=== PATIENT | male | born 1955 | race Caucasian/White ===

== ENCOUNTER → 2017-03-17 14:08 | Outpatient (CLI) | payer OTHER | END | disposition home or self-care (01) | LOC: D.RAD 14:08 | DX: S56.911A Strain of unspecified muscles, fascia and tendons at forearm level, right arm, initial encounter (principal); X58.XXXA Exposure to other specified factors, initial encounter; Y93.89 Activity, other specified; Y92.89 Other specified places as the place of occurrence of the external cause ==

== ENCOUNTER 2017-08-13 06:29 | Day surgery (SDC) | payer OTHER ==
[2017-08-12 14:23] LABS: HEMATOCRIT 46.6 % (42.0-54.0); HEMOGLOBIN 15.6 g/dL (13.5-17.5); MCH 31.3 pg (26.0-34.0); MCHC 33.5 g/dL (31.0-37.0); MCV 93.4 fL (80.0-100.0); RBC 4.99 10x6/uL (4.20-6.10)
[~2017-08-13] VITALS: Ht 190.5 cm; Wt 127.0 kg
--- NOTE | ~2017-08-13 | OP ---
PATIENT NAME: ALEIDA DRAKE MEDICAL RECORD: [id number] :53 [facility]ATION[facility] ADMISSION DATE: SURGEON: FOX ONTIVEROS DO DATE OF OPERATION: 08/13/2017 PROCEDURE PERFORMED: Left lateral epicondylectomy with extensor tendon debridement. PREOPERATIVE DIAGNOSIS: Left tennis elbow or lateral epicondylitis. POSTOPERATIVE DIAGNOSIS: Left tennis elbow or lateral epicondylitis. INDICATIONS: Mr. Drake is a 61-year-old male who has had left elbow pain for quite some time. He has tried bracing and injections, they have not helped. It has gotten to the point where it is affecting his activities of daily living and he wants something done surgically. We informed him of the risks and benefits of procedure including this sometimes may not have complete resolution of his symptoms, but he was wanting to try due to the fact he had been dealing with it quite some time, he wanted something done. SURGEON: Fox Ontiveros DO Tourniquet was up for 29 minutes. COMPLICATIONS: None. BLOOD LOSS: Minimal. DESCRIPTION OF PROCEDURE: The patient was taken to the operative suite, laid in supine position, given general anesthetic. A gram of Ancef preoperatively. Timeout was performed. Everyone was in agreeance with the correct side, site and patient. Left upper extremity was prepped and draped in sterile fashion. Once this was done, the left upper extremity was exsanguinated with an Esmarch and tourniquet was inflated to 250 mmHg. An incision was then made over the lateral condyle and just distal to it, and careful dissection was made down to the extensor carpi radialis longus and the extensor communis tendon. This interval was entered and the extensor carpi radialis brevis was seen below them and was seen to be quite diseased and frayed. This was scraped out at that time and all the diseased tendon was removed. Then, the lateral epicondyle was scraped as well. A cortical bone was removed and the interval was then closed with a 0 Vicryl in fjadmn-ci-rwwfb fashion and a watertight seal. No rent in the capsule was noted at that time. Attempt at closing the tourniquet was let down. Any bleeding was then coagulated and the skin was closed with 3-0 Vicryl inverted interrupted fashion and 4-0 Monocryl was ran under the skin. Steri-Strips were placed on the skin. Adaptic, 4 x 4s, Webril and Coban was lightly wrapped around the elbow and the patient was placed in a cock-up wrist splint. He was awakened and taken to recovery in stable condition. TRANSINT:[id number] Voice Confirmation ID: [id number] DOCUMENT ID: [id number] OPERATIVE REPORT [id number] ALEIDA DRAKE MICHAEL D, DO at 1502 CC: [id number] DICTATION DATE: 08/13/17828 ELECTRON BEAM PHOTO MASK MAKER: 08/13/17 1237 [facility] 08/13/17 [facility] [address] [place] [address]
[2017-08-13 06:17] VITALS: BP 139/88; Ht 190.5 cm; Wt 127.0 kg
[~2017-08-13 06:29] MED LIST: ACETAMINOPHEN325 MG PO; BAYER CHEWABLE81 MG PO; BUPROPION HCL200 M1 PO; KLONOPIN0.5 MG PO; PRISTIQ100 MG PO
[2017-08-13] MEDS ORDERED: DURICEF500 MG PO (08:21)
[2017-08-13] MEDS ORDERED: OXYCODONE HCL10 MG PO (08:21)
== END 2017-08-13 10:00 | disposition home or self-care (01) ==
LOC: D.OPS 06:29 → D.PAN 07:30 → D.OPS 09:15 → D.PAN 09:15 → D.OPS 10:00
PROVIDERS: Anesthesiology
DX: M77.12 Lateral epicondylitis, left elbow (principal); Z01.812 Encounter for preprocedural laboratory examination

== ENCOUNTER 2017-11-08 11:21 | Day surgery (SDC) | payer OTHER ==
[~2017-11-08] VITALS: Ht 188 cm; Wt 129.3 kg
--- NOTE | ~2017-11-08 | OP ---
PATIENT NAME: ALEIDA DRAKE MEDICAL RECORD: [id number] :53 LOCATION:[facility] ADMISSION DATE: SURGEON: ZORAIDA LAMBERT MD DATE OF OPERATION: 11/08/2017 PREOPERATIVE DIAGNOSIS: Severe medial epicondylitis of the left elbow. POSTOPERATIVE DIAGNOSIS: Severe medial epicondylitis of the left elbow. PROCEDURE: Lateral epicondylectomy with bone debridement and debridement of tendinosis of the medial elbow, left. SURGEON: Zoraida Lambert MD ANESTHESIA: General. INTRAOPERATIVE COMPLICATIONS: None. SUMMARY OF PATHOLOGIC FINDINGS: The patient had had some tearing of the flexure mass off the medial epicondyle consistent with preoperative diagnosis and long-term of prolonged response to corticosteroids. OPERATIVE SUMMARY IN DETAIL: After obtaining the appropriate preoperative orthopedic surgery consent as well as anesthetic consultation, evaluation and clearance, the patient was brought to the operating room and placed on the operating table in a supine position. After general laryngeal mask airway was administered, tourniquet was placed about the proximal aspect of the left upper extremity. Left upper extremity was then prepped and draped in routine sterile fashion. The arm was elevated and exsanguinated, tourniquet inflated to 250 mmHg. An incision was made over the medial epicondyle, taken down to the level of the medial epicondyle where the medial epicondyle was exposed and tendinotic and torn appearing fibers were excised. A small TPSL was then utilized to unroof the medial epicondyle for good bleeding bone bed. The anterior aspect of this area was somewhat sclerotic. This was then irrigated and a 3-0 SutureTak from [employer] was placed, the tails of which were then used to reapproximate the healthy tissue back to the bleeding bone bed. This was also oversewn with #1 Vicryl. Final skin closure was achieved with a 2-0 Vicryl and 3-0 Prolene in a running fashion. Sterile dressings were applied. The patient was awakened, taken to the recovery room in stable condition. All final needle and sponge counts were correct. TRANSINT:[id number] Voice Confirmation ID: [id number] DOCUMENT ID: [id number] ZORAIDA LAMBERT MD at 1842 CC: [id number] DICTATION DATE: 11/08/17 1706 CERTIFIED HAND THERAPIST: 11/09/17 0137 [facility] SDC 11/08/17 [facility] [address] [place] [address]
[~2017-11-08 11:21] MED LIST changes: +DURICEF500 MG PO; +OXYCODONE HCL10 MG PO
[2017-11-08 12:08] LABS: BASOPHILS 0.5 % (0-2); EOSINOPHILS 1.9 % (0-7); HEMATOCRIT 46.3 % (42.0-54.0); HEMOGLOBIN 15.8 g/dL (13.5-17.5); IMMATURE GRANULOCYTES 0.3 % (0-5); LYMPHOCYTES 35.6 % (15-50); MCH 30.9 pg (26.0-34.0); MCHC 34.1 g/dL (31.0-37.0); MCV 90.6 fL (80.0-100.0); MEAN PLATELET VOLUME 10.4 fL (7.4-10.4); MONOCYTES 8.3 % (2-11); NEUTROPHILS 53.4 % (40-80); PLATELET COUNT 230 10x3/uL (130-400); RBC 5.11 10x6/uL (4.20-6.10); RDW 13.4 % (11.5-14.5); WBC 6.3 10x3/uL (4.8-10.8)
[2017-11-08] MEDS ORDERED: TOPROL XL50 MG PO (12:16)
[2017-11-08 12:19] LABS: CALC OSMOLALITY 280 mosm/kg (275-300); CARBON DIOXIDE 24.2 mmol/L (21.0-32.0); CHLORIDE - SERUM 105 mmol/L (98-107); CREATININE - SERUM 0.9 mg/dL (0.6-1.3); GLUCOSE 111 mg/dL (74-106); POTASSIUM - SERUM 4.1 mmol/L (3.5-5.1); SODIUM 139 mmol/L (136-145); UREA NITROGEN 17 mg/dL (7-18); eGFR NON AFRICAN AMERICAN > 90 mL/min (90-120)
[2017-11-08 12:35] VITALS: BP 155/93; Ht 188 cm; Wt 129.3 kg
[2017-11-08] MEDS ORDERED: HYDROCODONE-APA1 TAB PO (17:06)
[2017-12-09] MEDS ORDERED: PRINIVIL20 MG PO (10:53)
== END 2017-11-08 19:04 | disposition home or self-care (01) ==
LOC: D.OPS 11:21 → D.PAN 13:45 → D.OPS 13:45
PROVIDERS: Anesthesiology
DX: M77.02 Medial epicondylitis, left elbow (principal); I10 Essential (primary) hypertension; G47.30 Sleep apnea, unspecified; E66.01 Morbid (severe) obesity due to excess calories; Z01.812 Encounter for preprocedural laboratory examination

== ENCOUNTER → 2017-11-24 14:55 | Outpatient (CLI) | payer OTHER ==
[2017-11-08 12:35] VITALS: BMI 36.6
[~2017-11-24 14:55] MED LIST changes: +HYDROCODONE-APA1 TAB PO; +PERCOCET 10/3251 TA1 PO; +PRINIVIL20 MG PO; +TOPROL XL50 MG PO
== END | disposition home or self-care (01) ==
LOC: D.MRI 14:55
DX: M25.512 Pain in left shoulder (principal)

== ENCOUNTER 2017-12-10 06:42 | Day surgery (SDC) | payer OTHER ==
[2017-12-09 11:58] LABS: HEMATOCRIT 44.4 % (42.0-54.0); HEMOGLOBIN 15.1 g/dL (13.5-17.5); MCH 31.4 pg (26.0-34.0); MCV 92.3 fL (80.0-100.0); MEAN PLATELET VOLUME 10.4 fL (7.4-10.4); RBC 4.81 10x6/uL (4.20-6.10); RDW 13.4 % (11.5-14.5); WBC 6.1 10x3/uL (4.8-10.8)
[~2017-12-10] VITALS: Ht 188 cm; Wt 129.3 kg
--- NOTE | ~2017-12-10 | OP ---
PATIENT NAME: ALEIDA DRAKE MEDICAL RECORD: [id number] :53 [facility]ATION:[facility] ADMISSION DATE: SURGEON: FAUSTO HOLT, ZORAIDA JEROME DATE OF OPERATION: 12/10/2017 PREOPERATIVE DIAGNOSES: 1. Impingement syndrome of the left shoulder. 2. Rotator cuff tear of the left shoulder. POSTOPERATIVE DIAGNOSES: 1. Impingement syndrome of the left shoulder. 2. Rotator cuff tear of the left shoulder. PROCEDURES: 1. Arthroscopic rotator cuff repair of the left shoulder. 2. Arthroscopic distal clavicle excision of the left shoulder. 3. Arthroscopic subacromial decompression with acromioplasty and bursectomy. SURGEON: Zoraida Lambert MD RESTORATIVE COORDINATOR SURGEON: Yo Marques MD ANESTHESIA: General. INTRAOPERATIVE COMPLICATIONS: None. SUMMARY OF PATHOLOGIC FINDINGS: As seen on the MRI, the patient had a full thickness rotator cuff tear of the supraspinatus tendon. The patient also had a type 3 acromion with downward sloping acromion and excoriation of the coracoacromial ligament. 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 OPERATIVE SUMMARY IN DETAIL: After obtaining the appropriate preoperative orthopedic surgery consent as well as anesthetic consultation, evaluation and clearance, the patient was brought to the operating room and placed on operating table in supine position. After general laryngeal mask airway was administered, the patient was placed in right lateral decubitus position. All pressure points were padded to include down leg peroneal pad as well as axillary roll. The patient was held firmly to the operating table using the vacuum pack suction system. Left upper extremity and shoulder were then prepped and draped in routine sterile fashion. The arm was held at 30 degrees of forward flexion, 30 degrees of abduction with 10 pounds of traction laterally. Arthroscopy was established in the glenohumeral joint where posterior portal and anterior portal were established in the anterior safe interval. Diagnostic arthroscopy showed mild labral tearing; however, there was no substantial biceps tendinitis. The rotator cuff tear was noted. At this point, transarthroscopic rotator cuff portal was created for debridement of the undersurface tearing of the rotator cuff and decortication of the supraspinatus tendinous footprint. Next, arthroscopy was established in the glenohumeral joint. While in the glenohumeral joint, a surface tissue ablation system was utilized to denude the undersurface of the acromion of all soft tissue elements. A 5.0 barrel bur was used for acromioplasty at the level of acromioclavicular joint. At this point, separate arthroscopic anterior portal was utilized for direct visualization of the AC joint while Dr. Marques held the camera as well as the inflow portal. OPERATIVE REPORT [id number] ALEIDA DRAKE The distal clavicle was excised for 1 cm under direct arthroscopic visualization. Having completed this, attention was turned to the rotator cuff tear itself. Again, mobilization of the rotator tear was accomplished. The supraspinatus tendinous footprint was further decorticated and again with the assistance of Dr. Marques holding the camera and inflow portal, a Scorpion suture passer from [employer] was used to pass #2 FiberTape in an inverted mattress style fashion. This was then anchored laterally with a self-punching 5.[address]iveLock [address] [employer] which Dr. Marques put in. Having completed this, the labral tape was cut, arthroscopic portals were closed, and sterile dressings were applied. The patient was awakened and taken to the recovery room in stable condition. All final needle and sponge counts were correct. TRANSINT:[id number] Voice Confirmation ID: [id number] DOCUMENT ID: [id number] FAUSTO HOLT, ZORAIDA JEROME at 0942 CC: [id number] DICTATION DATE: 12/10/17 1139 MONOTYPE OPERATOR: 12/10/17 1242 [facility] 12/10/[address] [address]
[~2017-12-10 06:42] MED LIST changes: -PERCOCET 10/3251 TA1 PO
[2017-12-10 08:30] VITALS: Ht 188 cm; Wt 129.3 kg
[2017-12-10] MEDS ORDERED: PERCOCET 10/3251 TA1 PO (11:34)
== END 2017-12-10 14:40 | disposition home or self-care (01) ==
LOC: D.OPS 06:42 → D.PAN 08:30 → D.OPS 10:00
PROVIDERS: Anesthesiology
DX: M75.42 Impingement syndrome of left shoulder (principal); M75.122 Complete rotator cuff tear or rupture of left shoulder, not specified as traumatic; M94.212 Chondromalacia, left shoulder; M25.712 Osteophyte, left shoulder; Z01.812 Encounter for preprocedural laboratory examination

== ENCOUNTER → 2018-01-12 07:17 | Outpatient (CLI) | payer OTHER ==
[2017-12-10 08:30] VITALS: BMI 36.6
[~2018-01-12 07:17] MED LIST changes: +PERCOCET 10/3251 TA1 PO
== END | disposition home or self-care (01) ==
LOC: D.MRI 07:17
DX: M75.102 Unspecified rotator cuff tear or rupture of left shoulder, not specified as traumatic (principal)

== ENCOUNTER 2018-01-27 10:10 | Day surgery (SDC) | payer OTHER ==
[2018-01-26 16:15] LABS: HEMATOCRIT 44.6 % (42.0-54.0); HEMOGLOBIN 15.3 g/dL (13.5-17.5); MCH 31.2 pg (26.0-34.0); MCHC 34.3 g/dL (31.0-37.0); MCV 90.8 fL (80.0-100.0); MEAN PLATELET VOLUME 10.2 fL (7.4-10.4); RBC 4.91 10x6/uL (4.20-6.10); RDW 13.2 % (11.5-14.5); WBC 8.5 10x3/uL (4.8-10.8)
[~2018-01-27] VITALS: Ht 190.5 cm; Wt 131.5 kg
--- NOTE | ~2018-01-27 | OP ---
PATIENT NAME: ALEIDA DRAKE MEDICAL RECORD: [id number] :53 LOCATION:[facility] ADMISSION DATE: SURGEON: ZORAIDA LAMBERT MD DATE OF OPERATION: 01/27/2018 PREOPERATIVE DIAGNOSIS: Recurrent rotator cuff tear of the left shoulder. POSTOPERATIVE DIAGNOSIS: Recurrent rotator cuff tear of the left shoulder. PROCEDURE: Open rotator cuff repair of the left shoulder. SURGEON: Zoraida Lambert MD ANESTHESIA: General. INTRAOPERATIVE COMPLICATIONS: None. SUMMARY OF PATHOLOGIC FINDINGS: The patient's recurrent tear of the rotator cuff tear this time was much more anterior to the area of previous rotator cuff tear. OPERATIVE SUMMARY IN DETAIL: After obtaining the appropriate preoperative orthopedic surgery consent as well as anesthetic consultation, evaluation, and clearance, the patient was brought to the operating room and placed on the operating table in supine position. After general laryngeal mask airway was administered, the patient was placed in beach chair position. All pressure points were well padded to include down leg peroneal pad as axillary roll. The patient was held firmly to the operating table using the vacuum pack suction system. The patient's left upper extremity and shoulder were then prepped and draped in routine sterile fashion. The arm was held in Trimano arm holding device. The patient's left upper extremity was then prepped and draped in routine sterile fashion. Anterolateral incision was made from the acromioclavicular joint across the acromion. Anterior cuff was left for reapproximation of the deep deltoid fiber. Rotator cuff tear was immediately identified. Nonviable-appearing rotator cuff tissue was excised and the tuberosity was decorticated for reapproximation. Proximal row for the [employer] SpeedBridge was placed on both the anterior and posterior aspect of the tear. The single to 2 arm suture tape was passed. These were then cut crisscrossed and anchored anteriorly and posteriorly using the lateral row 4.75 SwiveLocks. Having completed this, the wound was copiously irrigated. The deep deltoid was reapproximated back to the acromion in a rynsz-zxkn-cdvo imbricated style suture for good reapproximation of the deltoid back to the acromion. The deltoid fascia was then closed further with #2 Ethibond. This was followed by #1 Vicryl, 2-0 Vicryl and skin frank. Sterile dressings were applied. The patient was awakened, taken to recovery in stable condition. All final needle and sponge counts were correct. TRANSINT:[id number] Voice Confirmation ID: [id number] DOCUMENT ID: [id number] OPERATIVE REPORT [id number] ALEIDA DRAKE MD, ZORAIDA JEROME at 1150 CC: [id number] DICTATION DATE: 01/27/18 1407 [facility] ARCHITECT: 01/27/18 1428 [facility] 01/27/18 [place] [id number] [place] [id number]
[2018-01-27 11:10] VITALS: Ht 190.5 cm; Wt 131.5 kg
[2018-01-27] MEDS ORDERED: PERCOCET 10/3251 TA1 PO (14:01)
== END 2018-01-27 18:00 | disposition home or self-care (01) ==
LOC: D.OPS 10:10 → D.PAN 12:15 → D.OPS 12:15
PROVIDERS: Anesthesiology
DX: M75.102 Unspecified rotator cuff tear or rupture of left shoulder, not specified as traumatic (principal); Z01.812 Encounter for preprocedural laboratory examination

== ENCOUNTER → 2018-12-01 12:26 | Outpatient (CLI) | payer OTHER ==
[2018-01-27 11:10] VITALS: BMI 36.3
== END | disposition home or self-care (01) ==
LOC: D.MRI 12:26
PROVIDERS: ATTEND Orthopaedic Surgery
DX: S83.232A Complex tear of medial meniscus, current injury, left knee, initial encounter (principal); X58.XXXA Exposure to other specified factors, initial encounter

== ENCOUNTER 2018-12-20 08:00 | Outpatient (CLI) | payer OTHER ==
[2018-01-27 11:10] VITALS: BMI 36.3
[2018-12-20] MEDS ORDERED: ACETAMINOPHEN500 M1 PO (10:42)
[2018-12-20 11:30] LABS: HEMATOCRIT 44.4 % (42.0-54.0); HEMOGLOBIN 14.9 g/dL (13.5-17.5); MCH 30.8 pg (26.0-34.0); MCHC 33.6 g/dL (31.0-37.0); MCV 91.9 fL (80.0-100.0); MEAN PLATELET VOLUME 9.8 fL (7.4-10.4); RBC 4.83 10x6/uL (4.20-6.10); RDW 13.5 % (11.5-14.5); WBC 7.6 10x3/uL (4.8-10.8)
== END 2018-12-20 08:01 | disposition home or self-care (01) ==
LOC: D.OPS 08:00 → D.PAN 12-22 17:15 → D.OPS 12-22 17:15 → EDSTATUS 12-22 17:15
PROVIDERS: Anesthesiology; ATTEND Orthopaedic Surgery
DX: S83.232A Complex tear of medial meniscus, current injury, left knee, initial encounter (principal); M65.351 Trigger finger, right little finger

== ENCOUNTER → 2019-01-05 07:45 | Outpatient (CLI) | payer OTHER ==
[2018-01-27 11:10] VITALS: BMI 36.3
[~2019-01-05 07:45] MED LIST changes: +ACETAMINOPHEN500 M1 PO; +BETAPACE 80 MG80 MG PO; +BETAPACE240 MG PO; +LANOXIN125 MCG PO; +PRISTIQ50 MG PO; +XARELTO20 MG PO
--- NOTE | 2019-01-11 10:00 | ST ---
PATIENT:ALEIDA DRAKE MEDICAL RECORD: [id number] SEX: M LOCATION:[facility] ORDER #: ADMISSION DATE: 01/05/19 AGE OF PATIENT: 63 REFERRING PHYSICIAN: INTERPRETING PHYSICIAN: LUIS LEIGH MD DATE OF SERVICE: 01/05/2019 Nuclear Stress Test INDICATIONS: Angina, shortness of breath, hypertension, abnormal ECG. PROCEDURE IN DETAIL: He was exercised on standard Lexiscan protocol with 33 mCi of sestamibi injected at peak stress and 11 mCi used previously for rest images. FINDINGS: Gated SPECT reveals preserved ejection fraction at 59% with good wall motioning and thickening and brightening throughout all segments. SPECT IMAGING: Cardiolite used as a myocardial perfusion agent. There are reversible changes inferiorly, inferolaterally, and septally, this includes the basal, mid apical, and inferior segments, basal septal, mid septal, apical septal, as well as lateral inferior segments. The degree of reversibility is mild to moderate. The amount of myocardium involved is moderate to large. OVERALL IMPRESSION: 1. This is an abnormal nuclear stress test with reversible changes inferiorly, septally, and inferolaterally. 2. Gated SPECT reveals preserved ejection fraction of 59%. This is an intermediate to high risk abnormal nuclear stress test due to the amount of myocardium involved in the reversible ischemia, would proceed with coronary angiography as a follow-up study. TRANSINT:[id number] Voice Confirmation ID: [id number] DOCUMENT ID: [id number] LUIS LEIGH MD at 1000 CC: KALIA ABERNATHY DO [id number] DICTATION DATE: 01/09/19 0959 TYPING POOL SUPERVISOR: 01/10/19 0352 [facility] CLI 01/05/19 [place] [id number] [place] [id number]
--- NOTE | 2019-01-11 10:00 | EC ---
PATIENT:ALEIDA DRAKE DATE OF SERVICE: 01/05/19 SEX: M MEDICAL RECORD: [id number] DATE OF : 53 [facility]ATION:[facility] AGE OF PATIENT: 63 ADMISSION DATE: 01/05/19 REFERRING PHYSICIAN: INTERPRETING PHYSICIAN: LUIS LOWE MD ECHOCARDIOGRAM REPORT ECHO CHARGES 4 ECHO COMPLETE Date: 01/05/19 CLINICAL DIAGNOSIS: HTN/NEW ONSET OF ATRIAL FIB ECHOCARDIOGRAPHIC MEASUREMENTS (adult normal given) AC root (d.<3.7cm) 4.1 cm LV Septum d (<1.2 cm> 1.2 cm Valve Excursion 1.5 cm LV Septum (systole) 1.5 cm Left Atria (s.<4.0cm> 3.7 cm LVPW d(<1.2cm) 1.3 cm RV (d.<2.3cm) 3.9 cm LVPW (sytole) 1.5 cm LV diastole(<5.6CM) 4.2 cm MV E-F(>70mm/sec) cm LV systole 3.0 cm LVOT Diameter 2.1 cm MV exc.(>10mm) 1.6 cm Est.ejection fraction (50-75%) % DOPPLER: LVIT cm/sec A 34.0 cm/sec E 75.0 cm/sec LA cm/sec RVSP 18 mmHg LVOT 78 cm/sec AOP1/2T m/s Asc. Ao 88 cm/sec RVOT 49 cm/sec RA cm/sec PA 76 cm/sec AV Gradient Peak 3.06 mmHg AV Mean 1.82 mmHg AV Area 3.0 cm MV Gradient Peak 2.17 mmHg MV Mean 0.83 mmHg MV Area cm COMMENTS: Spin Instructor: Gwendolyn CHEUNG Radiologist Physician: 1 Dr. Lowe TAPE# PACS Pericardial Effusion N DATE OF SERVICE: 01/05/2019 FINDINGS: 1. Left ventricular chamber size is within normal limits. Left ventricular systolic function is normal. Overall ejection fraction is estimated at 55%. 2. Left atrium, right atrium, and right ventricular chamber sizes are within normal limit. 3. Valvular structures have normal structure and motion. 4. Doppler interrogation reveals no significant valvular insufficiency or stenosis. Pulmonary systolic pressure is normal, estimated at 18 mmHg. ECHOCARDIOGRAM REPORT [id number] ALEIDA DRAKE 5. No evidence of pericardial effusion or left ventricular thrombus. TRANSINT:[id number] Voice Confirmation ID: [id number] DOCUMENT ID: [id number] LUIS LOWE MD at 1000 CC: [id number] DICTATION DATE: 01/09/19 1038 PRESCHOOL ASSISTANT PRINCIPAL: 01/09/19 1258 [facility] CLI 01/05/19 [place] [id number] [place] [id number]
== END | disposition home or self-care (01) ==
LOC: D.HCCARDIO 07:45
PROVIDERS: ATTEND Internal Medicine Interventional Cardiology
DX: I10 Essential (primary) hypertension (principal)

== ENCOUNTER 2019-01-13 09:41 | Outpatient (CLI) | payer OTHER ==
[~2019-01-13] VITALS: Ht 190.5 cm; Wt 129.1 kg
--- NOTE | ~2019-01-13 | HEMODYNAMI ---
PATIENT:ALEIDA DRAKE MEDICAL RECORD: [id number] : 53 LOCATION:DFAUZIA ADMISSION DATE: 01/13/19 Generatedon:01/13/201912:51 Patient name: ALEIDA DRAKE Patient #: [id number] SSN: : 1955 Date of study: 01/13/2019 Page: Of Hemodynamic Procedure Report Patient Data Patient Demographics Procedure consent was obtained First Name: ALEIDA Gender: Male Last Name: NOELLE : 1955 [facility] Initial: DANIAL Age: 63 year(s) Patient #: [id number] Race: Unknown Additional ID: [id number] Contact details Address: [address] [place] [address] State: [place] City: [place] Zip code: [address] Past Medical History Allergies: No known allergies Admission Admission Data Admission Date: 01/13/2019 Admission Time: 9:41 Arrival Date: 01/13/2019 Arrival Time: 12:00 Admit Source: Other Insurance Payor: Private health insurance Height (in.): 75 BSA: 2.55 (m2) Height (cm.): 190.5 BMI: 35.55 (kg/m2) Weight (lbs.): 284.4 Weight (kg.): 129 Lab Results Lab Result Date: 01/13/2019 Lab Result Time: 0:00 Biochemistry Name Units Result Min Max BUN mg/dl 22 --(----)-* 7 18 Creatinine mg/dl 1 --(--*-)-- 0.6 1.3 CBC Name Units Result Min Max Hemoglobin g/dl 16 --(--*-)-- 13.5 17.5 Procedure Procedure Types Cath Procedure Diagnostic Procedure LHC LHC w/Coronaries Cardioversion External Procedure Description Procedure Date Procedure Date: 01/13/2019 Procedure Start Time: 12:46 Procedure End Time: 12:50 Procedure Staff Name Function Dontae Lowe MD Performing Physician Ash Darby RT Monitor Lalita Heard RT Scrub Helen Tboias RN Nurse Escobar Esqueda MD Additional personnel Procedure Data Cath Procedure Fluoroscopy Diagnostic fluoroscopy Total fluoroscopy Time: 1.1 time: 1.1 min min Diagnostic fluoroscopy Total fluoroscopy dose: 534 dose: 534 mGy mGy Contrast Material Contrast Material Type Amount (ml) Isovue 300 35 Entry Location Entry Primary Successful Side Size Upsize Upsize Entry Closure Castellano ccessful Closure Location (Fr) 1 (Fr) 2 (Fr) Remarks Device Remarks Femoral Right 5 Fr Mechanical artery Compression Diagnostic catheters Device Type Used For End Catheter Placement MULTIPACK Pigtail 5 Fr LV Angiography catheter MULTIPACK JL 4.0 5Fr Left Coronary catheter Angiography MULTIPACK 3DRC 5Fr Right Coronary catheter Angiography Procedure Complications No complications Procedure Medications Medication Administration Route Dosage 0.9% NaCl I.V. 100 ml/hr Oxygen etCO2 Nasal cannula 2 l/min Lidocaine 2% added to field 20 Heparin Flush Bag added to field 2 bags (1000units/500ml NS) Refer to Anesthesia Notes for Sedation Medications Radial Cocktail added to field 1 syringe (Verapamil 2mg/Nitro 400mcg/Heparin 1500units) Hemodynamics Rest BSA: 2.55 (m2) HGB: 16 (g/dl) O2 Consumption: Estimated: 330.26 (ml/min) O2 Cons umption indexed: Estimated:129.51 (ml/min/m) Heart Rate: 104 (bpm) Snapshots Pre Cath Intra NCS Post Cath Vital Signs Time Heart Resp SPO2 etCO2 NIBP (mmHg) Rhythm Pain Sedation Rate (ipm) (%) (mmHg) Status Level (bpm) 12:20:58 97 12 100 0 130/97(104) A-Fib 0 (11) 10(A) , No pain 12:25:57 64 16 98 0 Measuring A-Fib 0 (11) 5(A) , No pain 12:26:22 66 17 98 0 98/61(75) NSR 0 (11) 5(A) , No pain 12:30:40 67 17 98 0 93/59(66) NSR 0 (11) 5(A) , No pain 12:35:00 68 16 98 0 86/52(74) NSR 0 (11) 5(A) , No pain 12:39:20 68 16 98 0 86/48(76) NSR 0 (11) 5(A) , No pain 12:43:34 70 14 98 0 96/61(76) NSR 0 (11) 5(A) , No pain 12:47:52 70 19 96 0 104/61(79) NSR 0 (11) 10(A) , No pain Medications Time Medication Route Dose Verified Delivered Reason Notes E ffectiveness by by 12:21:58 0.9% NaCl I.V. 100 Dontae Helen used for ml/hr Chrissy Tobias associate professor of theology 12:22:05 Oxygen etCO2 2 l/min Dontae Helen used for Nasal Chrissy Tobias procedure cannula RN 12:22:09 Lidocaine 2% added 20ml Dontae Diggs for local to vial Chrissy Lowe MD anesthetic field 12:22:16 Heparin Flush added 2 bags Dontae Diggs used for Bag to Chrissy Lowe MD procedure (1000units/500ml field NS) 12:22:25 Refer to Dontae Diggs Anesthesia Notes Chrissy Lowe MD for Sedation Medications 12:29:35 Radial Cocktail added 1 Dontae Diggs used for (Verapamil to syringe Chrissy Lowe MD procedure 2mg/Nitro field 400mcg/Heparin 1500units) Procedure Log Time Note 12:06:21 Diagnostic Cath Status : Elective 12:07:14 Helen Tobias RN sent for patient. Start room use. 12:07:16 Time tracking: Regular hours (M-F 7:00 - 5:00) 12:07:20 Plan of Care:Hemodynamics will remain stable., Cardiac rhythm will remain stable., Comfort level will be maintained., Respiratory function will remain adequate., Patient/ family verbilizes understanding of procedure., Procedure tolerated without complication., Recovers from procedure without complications.. 12:08:48 Lab Result : Hemoglobin 16 g/dl 12:08:48 Lab Result : Creatinine 1 mg/dl 12:08:48 Lab Result : BUN 22 mg/dl 12:08:55 Admit Source: Other 12:09:00 Patient Height : 75 inches 12:09:05 Patient Weight : 284.4 lbs 12:09:19 Insurance Payor : Private health insurance 12::22 Arrival Date: 01/13/2019 12:00:00 PM 12:09:41 Patient received from Pre/Post Procedure Room to CCL 1 Alert and oriented. Tansferred to table in Supine position. 12:09:43 Warm blankets applied, and madhuri hugger turned on for patient comfort. 12::43 Correct patient and procedure confirmed by team. :: Signed procedure consent form obtained from patient. 12::46 ECG and BP/O2 sat monitors applied to patient. 12::44 Vital chart was started 12:20:20 Baseline sample Acquired. 12:20:22 Rhythm: sinus rhythm 12:20:24 Full Disclosure recording started 12::58 0.9% NaCl 100 ml/hr I.V. was administered by Helen Tobias RN; used for procedure; 12:22:05 Oxygen 2 l/min etCO2 Nasal cannula was administered by Helen Tobias RN; used for procedure; 12:22:09 Lidocaine 2% 20ml vial added to field was administered by Dontae Lowe MD; for local anesthetic; 12:22:16 Heparin Flush Bag (1000units/500ml NS) 2 bags added to field was administered by Dontae Lowe MD; used for procedure; 12:22:25 Refer to Anesthesia Notes for Sedation Medications was administered by Dontae Lowe MD; ; 12:24:34 H&P Date Dictated: 01/10/2019 Within 30 days and on chart.. 12:24:41 Pre-procedure instructions explained to patient. 12:24:41 Pre-op teaching completed and patient verbalized understanding. 12::44 Family in waiting room. 12::46 Patient NPO since Midnight. 12:25:01 Patient allergic to No known allergies 12:25:05 Is the patient allergic to Iodine/contrast media? No. 12:25:17 Is patient on blood thinner?Yes 12:25:33 Patient diabetic? No. 12:25:34 ----Pre-sedation anethsthesia assessment.---- 12:25:37 Previous problem with sedation/anesthesia? No ? 12:25:39 Snore? Yes 12:25:41 Sleep apnea? Yes 12:25:46 Deviated septum? No 12:25:47 Opens mouth fully? Yes 12:25:49 Sticks out tongue? Yes 12:25:58 Airway obstruction? No ? 12:26:00 Dentures? No ? 12:26:04 Pre procedure: right dorsailis pedis pulse 2+ Normal; easily identifiable; not easily obliterated 12:26:07 Modified León's test Ulnar < 7 seconds 12:26:11 Patient pain scale 0/10 ?. 12:26:21 IV patent on arrival in left antecubital with 0.9% NaCl at O. 12:: Lab results completed and on chart. 12::30 Right Radial & Right Groin area was prepped with chlora-prep and draped in sterile fashion 12:: Alarms reviewed by R. N. 12::32 Sharps counted by scrub and verified by R.N. 12::34 Physician arrived 12: --------ALL STOP TIME OUT------ 12:: Final Timeout: patient, procedure, and site verified with staff and physician. All members of the team are in agreement. 12::37 Right Radial & Right Groin site verified by team. 12::49 Maximum allowable Isovue 300 dose 300ml. Physician notified. (300ml for normal creatinines. For patients with creatinine of 1.7 or higher multiply weight(kg) x 5 divided by creatinine.) 12::53 Fire Safety Assessment: A--An alcohol-based skin anteseptic being used preoperatively., C--Open oxygen or nitrous oxide is being used., D--An ESU, laser, or fiber-optic light is being used. 12::55 Physical assessment completed. ASA score P 2 - A patient with mild systemic disease as per Dontae Lowe MD. 12:27:01 Sedation plan: IV Moderate Sedation Medication:Propofol 12:27:05 Escobar Esqueda MD present and monitoring patient for TIVA. 12:27:11 Procedure started. 12::13 ------Cardioversion------ 12::13 Quick combo pads placed on patients chest and back. 12:27:17 Defibrillator synced and charged to 275 Joules. 12:27:19 Shock delivered. 12::23 Patient cardioverted to sinus rhythm . 12:29:35 Radial Cocktail (Verapamil 2mg/Nitro 400mcg/Heparin 1500units) 1 syringe added to field was administered by Dontae Lowe MD; used for procedure; 12:41:50 Zero performed for pressure channel P1 12:46:55 Local anesthetic to right femoral artery with Lidocaine 2% by Dontae Lowe MD.INITIAL ACCESS ONLY 12:47:02 A 5 Fr sheath was inserted into the Right Femoral artery 12:47:10 Use device set Femoral Dx 12:47:11 ACIST Syringe (90562) opened to sterile field. 12:47:12 Bag Decanter (2002S) opened to sterile field. 12:47:12 Medline Cath Pack ([id number]) opened to sterile field. 12:47:13 ACIST Hand Control (40795) opened to sterile field. 12:47:14 ACIST Manifold (53172) opened to sterile field. 12:47:15 DIAGNOSTIC Multipack 5Fr catheter set (NT1606) opened to sterile field. 12:47:16 Tegaderm 4 x 4 (1626W) opened to sterile field. 12:47:18 SHEATH 5FR Norfolk (UNF583) opened to sterile field. 12:47:20 EMERALD Guide Wire (356-041) opened to sterile field. 12:47:32 A MULTIPACK Pigtail 5 Fr catheter was advanced over the wire and used for LV Angiography. 12:47:36 LV angiography performed. 12:47:38 LV gram done using ROMERO 12:47:42 EF : 55 % 12:47:45 Catheter removed. 12:47:50 A MULTIPACK JL 4.0 5Fr catheter was advanced over the wire and used for Left Coronary Angiography. 12:47:53 LCA angiography performed. 12:47:55 Catheter removed. 12:48:00 A MULTIPACK 3DRC 5Fr catheter was advanced over the wire and used for Right Coronary Angiography. 12:48:03 RCA angiography performed. 12:48:05 Catheter removed. 12:48:09 Procedure ended.(Physican Out) 12:48:15 Sheath removed intact; hemostasis achieved with Mechanical Compression to the Right Femoral artery. 12:48:20 Contrast amount:Isovue 300 35ml. 12:48:25 Fluoroscopy time 01.10 minutes. 12:49:30 Fluoroscopy dose: 534 mGy 12:49:30 Flurop Dose total: 534 12:49:31 Sharps counted by scrub and verified by R.N. 12:49:34 TR band inflated with 10cc of air. 12:49:39 Post-op/insertion site Right Femoral artery dressed using a Mepilex dressing. 12:49:47 Post right radial artery:stable 12:49:48 Post Procedure Pulses reassessed and unchanged 12:49:53 Post-procedure physical assessment completed. ASA score P 2 - A patient with mild systemic disease as per Dontae Lowe MD. 12:49:57 Post procedure rhythm: sinus rhythm 12:49:58 Post procedure instruction explained to patient.Patient verbalizes understanding. 12:50:00 Patient needs reinforcement of post procedure teaching. 12:50:01 Procedure and supply charges have been captured, reviewed, submitted and are correct. 12:50:20 TR BAND Large ([id number]) opened to sterile field. 12:50:36 Procedure Complication : No complications 12:50:38 Vital chart was stopped 12:50:38 See physician's report for complete and final results. 12:50:40 Report given to Pre/Post Procedure Room. 12:50:44 Patient transfered to Pre/Post Procedure Room with Stretcher. 12:50:46 Procedure ended. 12:50:46 Full Disclosure recording stopped 12:50:48 End room use (Document Last) Device Usage Item Name Manufacture Quantity Catalog Hospital Part Current Minimal L ot# / Number Charge Number Stock Stock Serial# Code ACIST Acist 1 82208 142247 558007 396019 20 Syringe Medical (77003) Systems Inc Bag Microtek 1 978591 64313 281158 5 Decanter Medical Inc. () Medline Medline 1 [id number] 860048 18522 817991 5 Cath Pack ([id number]) ACIST Hand Acist 1 09237 523357 426699 037468 5 Control Medical (80202) Systems Inc ACIST Acist 1 73803 554645 264825 489473 5 Manifold Medical (67155) Systems Inc DIAGNOSTIC Cardinal 1 [id number] 994897 53091 282046 30 MultipAlion Energy 5Fr catheter set (VJ1519) Tegaderm 4 3M 1 1626W 691361 207219 147664 5 x 4 (1626W) SHEATH 5FR Terumo 1 QER427 844347 689913 431528 5 Norfolk (NAA460) EMERALD Cardinal 1 502455 932112 204492 427096 5 Guide Wire [facility] (271-240) MULTIPACK Cardinal 1 100045 5 Pigtail 5 Health Fr catheter MULTIPACK Cardinal 1 061600 5 JL 4.0 5Fr Health catheter MULTIPACK Cardinal 1 909653 5 3DRC 5Fr Health catheter TR BAND Terumo 1 [id number] 987610 488423 834791 40 Large ([id number]) Signature Audit Dowling Stage Time Signature Unsigned Intra-Procedure 01/13/2019 Ash Darby RT(R) 12:51:13 PM Signatures Monitor : Ash Darby RT Signature : Date : Time : [place] [id number] [facility] [place] [address]
[~2019-01-13 09:41] MED LIST changes: -BETAPACE 80 MG80 MG PO; -BETAPACE240 MG PO; -LANOXIN125 MCG PO; -PRISTIQ50 MG PO; -XARELTO20 MG PO
[2019-01-13] MEDS ORDERED: LANOXIN125 MCG PO (10:07)
[2019-01-13] MEDS ORDERED: XARELTO20 MG PO (10:07)
[2019-01-13] MEDS ORDERED: PRISTIQ50 MG PO (10:07)
[2019-01-13] MEDS ORDERED: BETAPACE240 MG PO (10:11)
[2019-01-13] MEDS ORDERED: BETAPACE 80 MG80 MG PO (10:13)
--- NOTE | 2019-01-13 10:17 | NUR ---
NOTIFIED YARN BLEACHING MACHINE OPERATOR OF CONSULT FOR MENTAL HEALTH SCREEN.
[2019-01-13 10:21] VITALS: BP 108/77; Ht 190.5 cm; Wt 129.1 kg
[2019-01-13 10:39] LABS: BASOPHILS 0.3 % (0-2); EOSINOPHILS 2.5 % (0-7); HEMATOCRIT 45.8 % (42.0-54.0); IMMATURE GRANULOCYTES 0.3 % (0-5); LYMPHOCYTES 35.5 % (15-50); MCH 31.6 pg (26.0-34.0); MCHC 34.9 g/dL (31.0-37.0); MCV 90.5 fL (80.0-100.0); MEAN PLATELET VOLUME 10.2 fL (7.4-10.4); NEUTROPHILS 51.4 % (40-80); PLATELET COUNT 273 10x3/uL (130-400); RBC 5.06 10x6/uL (4.20-6.10); RDW 13.6 % (11.5-14.5); WBC 6.1 10x3/uL (4.8-10.8)
[2019-01-13 10:43] LABS: CALC OSMOLALITY 281 mosm/kg (275-300); CALCIUM 9.1 mg/dL (8.5-10.1); CARBON DIOXIDE 25.7 mmol/L (21.0-32.0); CHLORIDE - SERUM 105 mmol/L (98-107); GLUCOSE 115 mg/dL (74-106); SODIUM 139 mmol/L (136-145); UREA NITROGEN 22 mg/dL (7-18); eGFR NON AFRICAN AMERICAN 80 mL/min (90-120)
[2019-01-13 10:46] LABS: INR 0.99 (0.85-1.17); POTASSIUM - SERUM 5.4 mmol/L (3.5-5.1); PROTIME 12.6 SECONDS (11.6-15.0)
--- NOTE | 2019-01-13 10:56 | NUR ---
MENTAL HEALTH HAS NOT EVALUATED PT YET. CALLED COMMERCIAL ENGINEER AND WAS INFORMED WE WERE THIRD ON THE LIST. NOTIFIED CASCADE OPERATOR OF DELAY.
--- NOTE | 2019-01-13 11:14 | NUR ---
NURSE ROTH FROM MENTAL HEALTH AT BEDSIDE FOR ASSESSMENT.
--- NOTE | 2019-01-13 11:27 | NUR ---
DR. GLASER NOTIFIED AND REVIEWED PT'S BEHAVIOR AND ASSESSMENT RESULTS. PT IS A LOW RISK PER DR. GLASER. DR. GLASER STATED TO GIVE RESOURCES TO PT AT THE TIME OF DISCHARGE. NO FURTHER ORDERS AT THIS TIME. RESOURCES REVIEWED WITH PT AND HE VERBALIZED UNDERSTANDING.
--- NOTE | 2019-01-13 13:13 | NUR ---
RECEIVED PT FROM SPORTS INSTRUCTOR, PT IS ALERT, DENIES ANY C/O PAIN OR NAUSEA. TR BAND IS CDI, FINGERS WARM AND CAP REFILL IS BRISK. SANDWICH AND PO FLUIDS AT BEDSIDE.
--- NOTE | 2019-01-13 13:25 | NUR ---
TR BAND CDI, FINGERS WARM AND CAP REFILL IS BRISK. PT SITTING UP IN BED, EATING SANDWICH. NSR, RATE 67. BP IS 112/76. DENIES ANY C/O CHEST PAIN.
--- NOTE | 2019-01-13 14:04 | NUR ---
1350 TR BAND CDI, FINGERS WARM AND CAP REFILL IS BRISK. PT IS ALERT AND DENIES ANY C/O OR NEEDS. NSR.
--- NOTE | 2019-01-13 14:08 | NUR ---
2 CC OF AIR WEANED FROM TR BAND WITH NO BLEEDING NOTED. FINGERS WARM, CAP REFILLIS BRISK. PT JOSE SANDWICH WITH NO NAUSEA. VSS. AT BEDSIDE.
--- NOTE | 2019-01-13 14:20 | NUR ---
3 CC OF AIR WEANED FROM TR BAND WITH NO BLEEDING NOTED.
--- NOTE | 2019-01-13 14:33 | NUR ---
3 CC OF AIR WEANED FROM TR BAND WITH NO BLEEDING NOTED. FINGERS WARM AND CAP REFILL IS BRISK. PT IS ALERT AND DENIES ANY C/O. NSR, RATE 70.
--- NOTE | 2019-01-13 14:48 | NUR ---
ALL REMAINING AIR WEANED FROM TR BAND WITH NO BLEEDING NOTED. FINGERS WARM AND CAP REFILL IS BRISK. PT DENIES ANY C/O.
--- NOTE | 2019-01-13 15:04 | NUR ---
DR LEIGH HAS ROUNDED ON PT. DC INSTRUCTIONS REVIEWED WITH PT AND WHO VERBALIZE UNDERSTANDING. IV DC'D WITH CATH INTACT AND PT IS DRESSING FOR DC WITH ASSIST.
--- NOTE | 2019-01-13 15:36 | NUR ---
1510 2X2 AND TEGADERM CDI TO RIGHT WRIST, NO BLEEDING OR HEMATOMA NOTED. FINGERS WARM AND CAP REFILL IS BRISK. RADIAL PULSE IS PALPABLE. PT HAS DRESSED FOR DC, DENIES ANY C/O. PT ESCORTED TO PRIVATE AUTO VIA WC BY NURSE WITH DRIVING HIM HOME.
--- NOTE | 2019-01-16 09:50 | OP ---
PATIENT NAME: ALEIDA DRAKE MEDICAL RECORD: [id number] :53 LOCATION:D.CAT ADMISSION DATE: SURGEON: LUIS LEIGH MD DATE OF OPERATION: 01/13/2019 DATE OF SERVICE: 01/13/2019 PROCEDURES: 1. DC cardioversion. 2. Left heart catheterization. 3. Selective coronary angiography. 4. Left ventriculogram. INDICATION: Atrial fibrillation and angina. DESCRIPTION OF PROCEDURE: After informed consent was obtained and after a detailed description of risks, benefits as well as alternative therapies, the patient elected to proceed with angiogram and cardioversion. The right radial area was prepped and draped in normal sterile fashion. Right radial artery was cannulated via modified Seldinger technique with placement of 5-Nicaraguan sheath. FINDINGS: The left ventriculogram was performed in standard 30-degree ROMERO view, reveals good cardiac wall motion throughout all segments. Overall ejection fraction estimated at 60%. SELECTIVE CORONARY ANGIOGRAPHY: Left main, left anterior descending, left circumflex, right coronary artery are all smooth-walled vessels with no angiographic evidence of coronary artery disease. DC CARDIOVERSION: IV conscious sedation was per anesthesia. Continuous heart rate, O2 saturation, blood pressure monitoring all undertaken, all of which remains stable. He received 1 shock restoring sinus rhythm. OVERALL IMPRESSION: 1. Successful DC cardioversion from atrial fibrillation to sinus rhythm. 2. No significant coronary artery disease is present. TRANSINT:[id number] Voice Confirmation ID: [id number] DOCUMENT ID: [id number] LUIS LEIGH MD at 0950 CC: [id number] DICTATION DATE: 01/13/19 1252 AUTOMATIC PAD MAKING MACHINE OPERATOR: 01/13/19 1334 DEP CLI 01/13/19 [place] [address] [place] [address]
== END 2019-01-13 15:10 | disposition home or self-care (01) ==
LOC: D.CATH 09:41
PROVIDERS: ATTEND Internal Medicine Interventional Cardiology
DX: I48.91 Unspecified atrial fibrillation (principal); I20.9 Angina pectoris, unspecified; Z01.812 Encounter for preprocedural laboratory examination

== ENCOUNTER 2019-02-13 06:45 | Day surgery (SDC) | payer OTHER ==
[2019-02-10 09:49] LABS: HEMATOCRIT 43.4 % (42.0-54.0); HEMOGLOBIN 14.7 g/dL (13.5-17.5); MCHC 33.9 g/dL (31.0-37.0); MCV 91.6 fL (80.0-100.0); MEAN PLATELET VOLUME 10.3 fL (7.4-10.4); RBC 4.74 10x6/uL (4.20-6.10); RDW 13.6 % (11.5-14.5); WBC 5.5 10x3/uL (4.8-10.8)
[~2019-02-13] VITALS: Ht 190.5 cm; Wt 129.3 kg
[~2019-02-13 06:45] MED LIST changes: +BETAPACE 80 MG80 MG PO; +BETAPACE240 MG PO; +LANOXIN125 MCG PO; +PRISTIQ50 MG PO; +XARELTO20 MG PO
[2019-02-13] MEDS ORDERED: BUPROPION XL300 MG PO (07:37)
[2019-02-13 07:43] VITALS: BP 121/71; Ht 190.5 cm; Wt 129.3 kg
[2019-02-13] MEDS ORDERED: HYDROCODON-ACE1 EA10 PO (09:28)
--- NOTE | 2019-02-14 07:16 | OP ---
PATIENT NAME: ALEIDA DRAKE MEDICAL RECORD: [id number] :53 LOCATION:D.OPS ADMISSION DATE: SURGEON: ZORAIDA LAMBERT MD DATE OF OPERATION: 02/13/2019 PREOPERATIVE DIAGNOSES: 1. Medial meniscus tear of the left knee. 2. Trigger finger of the right small finger. POSTOPERATIVE DIAGNOSES: 1. Medial meniscus tear of the left knee. 2. Trigger finger of the right small finger. PROCEDURES: 1. Left knee arthroscopy with arthroscopic partial medial meniscectomy. 2. A1 presley release, trigger finger release, right small finger. SURGEON: Zoraida Lambert MD PHOTOGRAPH TINTER: García Hicks. INTRAOPERATIVE COMPLICATIONS: None. SUMMARY OF PATHOLOGIC FINDINGS: The patient had a complex tear of the posterior horn of medial meniscus and the patient had a very tight A1 presley with significant attritional changes. No full thickness tearing of the flexure components of the right small finger. However, the A1 presley was extremely thickened. OPERATIVE SUMMARY IN DETAIL: After obtaining the appropriate preoperative orthopedic surgery consent as well as anesthetic consultation, evaluation and clearance, the patient was brought to the operating room and placed on the operating table in supine position. After general laryngeal mask airway was administered, tourniquet was placed in the proximal aspect of left lower extremity and right upper extremity. Both extremities were prepped and draped in routine sterile fashion. At this point, the appropriate timeout was taken with the appropriate identifiers and agreed upon by all. Attention was first turned to the left lower extremity. Left lower extremity was elevated and exsanguinated, tourniquet inflated to 350 mmHg. Routine inferolateral portal was established followed by superomedial portal and inferomedial portal. 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 However, there was a complex tear of the posterior horn of the medial meniscus. This was taken down with a combination of meniscotomes as well as an arthroscopic resector. Lateral compartment was pristine as well as the patellofemoral joint. Having completed this, the knee was insufflated with 30 cc of 0.25% Marcaine with epinephrine and 40 mg of Depo-Medrol. Arthroscopy portals were closed in routine interrupted fashion. At this point, a temporary dressing was placed while attention was turned to the right upper extremity. Right upper extremity likewise was elevated and exsanguinated, tourniquet inflated to 250 mmHg. An incision was made directly over the A1 presley. Dissection was carried down to the A1 presley was identified. The digital nerves were retracted. A1 presley was cut in its entirety. It is of note that the A1 presley was prolonged and extremely thickened after it was completely incised. The tendons were evaluated, had significant attritional changes, but no full thickness tearing. Wounds were OPERATIVE REPORT [id number] ALEIDA DRAKE irrigated. This wound was irrigated and closed with 4-0 Prolene by García Hicks. Area was locally infiltrated with 0.25% Marcaine plain. Sterile dressings were applied. Tourniquet was deflated as it was done to the left lower extremity. Tourniquet was deflated. Likewise, the patient was awakened, taken to recovery room in stable condition. All final needle and sponge counts were correct. TRANSINT:[id number] Voice Confirmation ID: [id number] DOCUMENT ID: [id number] FAUSTO HOLT, ZORAIDA JEROME at 0716 CC: [id number] DICTATION DATE: 02/14/19 0605 DIRECTOR PROSPECT: 02/14/19 0640 [facility] 02/13/19 [facility] [address] [place] [address]
== END 2019-02-13 11:27 | disposition home or self-care (01) ==
LOC: D.OPS 06:45 → D.PAN 11:00 → D.OPS 11:00
PROVIDERS: Anesthesiology; ATTEND Orthopaedic Surgery
DX: S83.232A Complex tear of medial meniscus, current injury, left knee, initial encounter (principal); M65.351 Trigger finger, right little finger; Z01.812 Encounter for preprocedural laboratory examination

== ENCOUNTER 2019-03-09 09:09 | Day surgery (SDC) | payer OTHER ==
[~2019-03-09] VITALS: Ht 190.5 cm; Wt 129.3 kg
[~2019-03-09 09:09] MED LIST changes: +BUPROPION XL300 MG PO; +HYDROCODON-ACE1 EA10 PO
[2019-03-09 09:21] LABS: HEMATOCRIT 45.5 % (42.0-54.0); HEMOGLOBIN 15.6 g/dL (13.5-17.5); MCH 31.1 pg (26.0-34.0); MCHC 34.3 g/dL (31.0-37.0); MCV 90.6 fL (80.0-100.0); MEAN PLATELET VOLUME 10.3 fL (7.4-10.4); RBC 5.02 10x6/uL (4.20-6.10); RDW 13.7 % (11.5-14.5); WBC 6.2 10x3/uL (4.8-10.8)
[2019-03-09 10:10] VITALS: BP 108/67; Ht 190.5 cm; Wt 129.3 kg
--- NOTE | 2019-03-09 10:52 | NUR ---
DR. GLASER NOTIFIED AND REVIEWED PT'S BEHAVIOR AND ASSESSMENTS RESULTS. PT IS A LOW RISK PER DR. GLASER. DR. GLASER STATED TO GIVE RESOURCES TO PT AT TIME OF DISCHARGE. NO FURTHER ORDERS AT THIS TIME. RESOURCES REVIEWED WITH PT AND HE VERBALIZIED UNDERSTANDING. PT IS ON MEDICATION FOR DEPRESSION.
[2019-03-09] MEDS ORDERED: HYDROCODON-ACE1 EA10 PO (11:54)
--- NOTE | 2019-03-09 12:49 | OP ---
PATIENT NAME: ALEIDA DRAKE MEDICAL RECORD: [id number] :53 LOCATION:D.OPS ADMISSION DATE: SURGEON: ZORAIDA LAMBERT MD DATE OF OPERATION: 03/09/2019 PREOPERATIVE DIAGNOSIS: Recurrent trigger finger of the right small finger. POSTOPERATIVE DIAGNOSIS: Recurrent trigger finger of the right small finger. PROCEDURE: Revision trigger finger release of the right finger. SURGEON: Zoraida Lambert MD ANESTHESIA: General. INTRAOPERATIVE COMPLICATIONS: None. SUMMARY OF PATHOLOGIC FINDINGS: The patient was indeed found to have early regrowth of the A1 presley. At this time, the A1 presley was excised rather than incised. OPERATIVE SUMMARY IN DETAIL: After obtaining the appropriate preoperative orthopedic surgery consent as well as anesthetic consultation, evaluation and clearance, the patient was brought to the operating room and placed on the operating table in supine position. After adequate general laryngeal mask airway was administered, tourniquet was placed on the proximal aspect of the right upper extremity. Right upper extremity was then prepped and draped in routine sterile fashion. The arm was elevated and exsanguinated, tourniquet was inflated to 250 mmHg. An re-incision was done about the old incision elongated slightly. This was taken down past scar tissue and the long, thickened, and recurrent grown A1 presley was seen. It was incised medially and then laterally for an excision of the A1 presley. At this point, the finger was taken through a range of motion and found no triggering. The tendon was again inspected and had some mild attritional changes, but no full thickness tearing. Wound was irrigated copiously and closed with 4-0 Prolene in routine interrupted fashion followed by infiltration of 0.25% Marcaine plain in and about the incision. Sterile dressings were applied. Tourniquet was deflated. The patient was awakened and taken to recovery in stable condition. All final needle and sponge counts were correct. TRANSINT:[id number] Voice Confirmation ID: [id number] DOCUMENT ID: [id number] ZORAIDA LAMBERT MD at 1249 CC: [id number] DICTATION DATE: 03/09/19 1156 [id number] ARMOR CREWMAN: 03/09/[address] [facility] [address] [place] [address]
--- NOTE | 2019-03-09 13:55 | NUR ---
PATIENT AMBULATING AROUND ROOM WITHOUT DIZZINESS. LEFT HAND PIV DC'D WITH TIP INTACT. DISCHARGE INSTRUCTIONS REVIEWED WITH PATIENT AND SPOUSE. PATIENT DISCHARGED HOME VIA WHEELCHAIR TO PRIVATE VEHICLE WITH SPOUSE
== END 2019-03-09 13:55 | disposition home or self-care (01) ==
LOC: D.OPS 09:09 → D.PAN 16:45
PROVIDERS: Anesthesiology; ATTEND Orthopaedic Surgery
DX: M65.351 Trigger finger, right little finger (principal); Z01.812 Encounter for preprocedural laboratory examination

== ENCOUNTER → 2019-05-17 08:43 | Outpatient (CLI) | payer OTHER ==
[2019-03-09 10:10] VITALS: BMI 35.6
== END | disposition home or self-care (01) ==
LOC: D.RAD 08:43
PROVIDERS: ATTEND Family Medicine
DX: R07.81 Pleurodynia (principal)

== ENCOUNTER → 2019-06-08 08:26 | Outpatient (CLI) | payer OTHER ==
[2019-03-09 10:10] VITALS: BMI 35.6
== END | disposition home or self-care (01) ==
LOC: D.US 08:26
PROVIDERS: ATTEND Family Medicine
DX: M75.122 Complete rotator cuff tear or rupture of left shoulder, not specified as traumatic (principal); R10.9 Unspecified abdominal pain; R10.11 Right upper quadrant pain

== ENCOUNTER → 2019-06-20 09:33 | Outpatient (CLI) | payer OTHER ==
[2019-03-09 10:10] VITALS: BMI 35.6
== END | disposition home or self-care (01) ==
LOC: D.MRI 09:33
PROVIDERS: ATTEND Orthopaedic Surgery
DX: M54.12 Radiculopathy, cervical region (principal)

== ENCOUNTER → 2019-08-01 07:32 | Outpatient (CLI) | payer OTHER ==
[2019-03-09 10:10] VITALS: BMI 35.6
== END | disposition home or self-care (01) ==
LOC: D.MRI 07:32
PROVIDERS: ATTEND Internal Medicine Gastroenterology
DX: R93.2 Abnormal findings on diagnostic imaging of liver and biliary tract (principal)

== ENCOUNTER → 2019-11-14 08:10 | Outpatient (CLI) | payer MEDICARE, OTHER ==
[2019-03-09 10:10] VITALS: BMI 35.6
== END | disposition home or self-care (01) ==
LOC: D.RAD 08:10 → D.MRI 09:30
PROVIDERS: ATTEND Orthopaedic Surgery
DX: T15.90XA Foreign body on external eye, part unspecified, unspecified eye, initial encounter (principal); S56.911A Strain of unspecified muscles, fascia and tendons at forearm level, right arm, initial encounter

== ENCOUNTER 2019-12-21 05:40 | Day surgery (SDC) | payer MEDICARE, OTHER ==
[2019-12-19 12:32] LABS: CALC OSMOLALITY 277 mosm/kg (275-300); CALCIUM 9.4 mg/dL (8.5-10.1); CARBON DIOXIDE 27.7 mmol/L (21.0-32.0); CHLORIDE - SERUM 103 mmol/L (98-107); GLUCOSE 106 mg/dL (74-106); POTASSIUM - SERUM 4.3 mmol/L (3.5-5.1); SODIUM 138 mmol/L (136-145); UREA NITROGEN 19 mg/dL (7-18); eGFR NON AFRICAN AMERICAN 80 mL/min (90-120)
[2019-12-19 13:12] LABS: HEMATOCRIT 47.9 % (42.0-54.0); HEMOGLOBIN 15.8 g/dL (13.5-17.5); MCH 31.1 pg (26.0-34.0); MCV 94.3 fL (80.0-100.0); RBC 5.08 10x6/uL (4.20-6.10); RDW 12.8 % (11.5-14.5); WBC 6.9 10x3/uL (4.8-10.8)
[~2019-12-21] VITALS: Ht 188 cm; Wt 127.5 kg
[~2019-12-21 05:40] MED LIST changes: +FISH OIL 1,0001 CA1 PO; +PHOSLO667 MG PO; +ZANAFLEX4 MG PO
[2019-12-21 07:06] VITALS: BP 121/66; Ht 188 cm; Wt 127.5 kg
[2019-12-21] MEDS ORDERED: HYDROCODON-ACE1 EA10 (08:49)
[2019-12-21] MEDS ORDERED: HYDROCODON-ACE1 EA10 PO (08:50)
--- NOTE | 2019-12-30 11:34 | OP ---
PATIENT NAME: ALEIDA DRAKE MEDICAL RECORD: [id number] :53 LOCATION:D.OPS ADMISSION DATE: SURGEON: ZORAIDA LAMBERT MD DATE OF OPERATION: 12/21/2019 PREOPERATIVE DIAGNOSES: Right medial epicondylitis with avulsion of the flexor mass. POSTOPERATIVE DIAGNOSES: Right medial epicondylitis with avulsion of the flexor mass. PROCEDURE: Right medial epicondylectomy with reconstruction of the patient's extensor mass. SURGEON: Zoraida Lambert MD ANESTHESIA: General. FLUXER: MEL Patton INTRAOPERATIVE COMPLICATIONS: None. SUMMARY OF PATHOLOGIC FINDINGS: The patient had a tear of the common flexor tendon of the medial epicondyle. It was of note that the patient's ulnar nerve was identified and released completely, although he had no symptoms prior. This was done for safety. OPERATIVE SUMMARY IN DETAIL: After obtaining the appropriate preoperative orthopedic surgery consent as well as anesthetic consultation, evaluation and clearance, the patient was brought to the operating room and placed on the operating table in supine position. After adequate general laryngeal mask airway was administered, tourniquet was placed in the proximal aspect of the right upper extremity. Right upper extremity was then prepped and draped in routine sterile fashion. The arm was elevated and exsanguinated, tourniquet inflated to 250 mmHg. Appropriate timeout was taken and agreed upon by all given the patient's unique identifiers. Incision was made over the medial epicondyle. It was gently taken down to the extensor mass that was noted to have tears and hemosiderin hematoma staining. At this point, the ulnar nerve was identified and carefully dissected out and protected with red vessel loops to the entire case. The common extensor origin was then taken down to the level of the medial epicondyle. The medial epicondyle was osteotomized for a small metaphyseal blood ridge origin. Single implant was then placed with 4 sutures, that was 3.0 SutureTak. The common flexor mechanism was then reapproximated back to the medial epicondyle with repair of the tear of the common extensor tendon. Having completed this, the wound was irrigated and closed by MEL Patton using #2 Vicryl and 4-0 Prolene. Sterile dressings were applied. Tourniquet was deflated. Posterior splint was applied. The patient was awakened, taken to recovery room in stable condition. All final needle and sponge counts were correct. TRANSINT:[id number] Voice Confirmation ID: [id number] DOCUMENT ID: [id number] OPERATIVE REPORT [id number] ALEIDA DRAKE MD, ZORAIDA JEROME at 1134 CC: [id number] DICTATION DATE: 12/29/19 1203 GERICARE AIDE TEACHER: 12/29/19 1304 [facility] [place] 12/21/19 [place] [id number]
== END 2019-12-21 10:22 | disposition home or self-care (01) ==
LOC: D.OPS 05:40 → D.PAN 09:30 → D.OPS 09:30 → D.PAN 13:20 → D.OPS 15:30
PROVIDERS: Anesthesiology; ATTEND Orthopaedic Surgery
DX: S56.911A Strain of unspecified muscles, fascia and tendons at forearm level, right arm, initial encounter (principal); M77.01 Medial epicondylitis, right elbow; I10 Essential (primary) hypertension; J45.909 Unspecified asthma, uncomplicated; X58.XXXA Exposure to other specified factors, initial encounter

== ENCOUNTER 2020-01-08 06:08 | Day surgery (SDC) | payer OTHER ==
[~2020-01-08] VITALS: Ht 188 cm; Wt 131.8 kg
[~2020-01-08 06:08] MED LIST changes: +HYDROCODON-ACE1 EA10
[2020-01-08 06:32] LABS: HEMATOCRIT 49.1 % (42.0-54.0); HEMOGLOBIN 16.2 g/dL (13.5-17.5); MCH 30.2 pg (26.0-34.0); MCV 91.6 fL (80.0-100.0); MEAN PLATELET VOLUME 9.3 fL (7.4-10.4); RBC 5.36 10x6/uL (4.20-6.10); RDW 12.7 % (11.5-14.5); WBC 6.2 10x3/uL (4.8-10.8)
[2020-01-08 07:21] VITALS: BP 129/79; Ht 188 cm; Wt 131.8 kg
--- NOTE | 2020-01-08 07:22 | NUR ---
0722-PT. MENTAL HEALTH SCREEN POSITIVE FOR REMOTE HISTORY OF SUICIDE THOUGHTS. STATES NOTHING CURRENT AND IS UNDER TREATMENT FOR DEPRESSION. PT. OFFERED METAL HEALTH EVALUATION AND REFUSES OFFER TODAY.
--- NOTE | 2020-01-09 07:09 | OP ---
PATIENT NAME: ALEIDA DRAKE MEDICAL RECORD: [id number] :53 LOCATION:[facility] ADMISSION DATE: SURGEON: ANANT JONES DO DATE OF OPERATION: 01/08/2020 PROCEDURE: EGD with biopsies. INDICATIONS FOR PROCEDURE: Upper abdominal pain. SCOPE: Olympus video gastroscope. MEDICATIONS: Propofol 250 mg IV per anesthesia. ESTIMATED BLOOD LOSS: Minimal. COMPLICATIONS: None. FINDINGS: Informed consent was given. The patient was made comfortable with the above medication. After reaching an adequate level of sedation by slow IV push, the patient was placed on his left side. The endoscope was advanced under direct visualization through the mouth to the second portion of the duodenum with ease. The entire esophagus appeared normal down to the GE junction. Cold forceps, biopsies were taken from the mid esophagus to rule out the presence of eosinophils. At the GE junction, there was evidence of LA class A reflux-induced esophagitis. Cold forceps, biopsies were taken from the squamocolumnar junction to rule out the presence of Branch's mucosa. The endoscope was advanced beyond the GE junction into the stomach and retroflexed to view the cardia, where a small sliding hiatal hernia was present. Throughout the stomach, there were mild changes of congestion and erythema consistent with mild chronic gastritis. Cold forceps biopsies were taken from the antrum and incisura to submit for histopathology and to rule out the presence of H. pylori. The endoscope was advanced beyond the pylorus into the duodenum, which appeared normal to the second portion. Cold forceps biopsies were taken from the examined portions of the small bowel to submit for histopathology. The endoscope was withdrawn from the patient. The patient tolerated the procedure well and there were no complications. IMPRESSION: 1. LA class A reflux-induced esophagitis. 2. Small sliding hiatal hernia. 3. Chronic gastritis changes characterized by congestion and erythema. PLAN AND RECOMMENDATIONS: 1. Discharge home when recovery parameters are met. 2. Follow up biopsy specimen results. 3. GERD diet and reflux precautions. 4. Continue current medications. 5. Omeprazole 40 mg daily times 60 days. 6. PIPIDA scan to evaluate gallbladder function. 7. Consider gastric emptying scan if continued abdominal pain while on a PPI and PIPIDA is normal. 8. Follow up in GI clinic in 1 month. TRANSINT:[id number] Voice Confirmation ID: [id number] DOCUMENT ID: [id number] OPERATIVE REPORT [id number] ALEIDA DRAKE NATHAN A DO at 0709 CC: [id number] DICTATION DATE: 01/08/20818 RADAR SIGNAL PROCESSING ENGINEER: 01/08/20 1800 [facility] 01/08/20 [facility] [address] [place] [address]
== END 2020-01-08 09:05 | disposition home or self-care (01) ==
LOC: D.OPS 06:08
PROVIDERS: Anesthesiology; ATTEND Internal Medicine Gastroenterology
DX: R10.10 Upper abdominal pain, unspecified (principal); K76.0 Fatty (change of) liver, not elsewhere classified

== ENCOUNTER → 2020-01-11 09:06 | Outpatient (CLI) | payer MEDICARE, OTHER ==
[2020-01-08 07:21] VITALS: BMI 37.3
== END | disposition home or self-care (01) ==
LOC: D.NM 09:06
PROVIDERS: ATTEND Internal Medicine Gastroenterology
DX: R10.9 Unspecified abdominal pain (principal)

== ENCOUNTER 2020-03-04 06:00 | Day surgery (SDC) | payer MEDICARE, OTHER ==
[2020-03-01 09:53] LABS: HEMATOCRIT 45.6 % (42.0-54.0); HEMOGLOBIN 14.8 g/dL (13.5-17.5); MCH 30.3 pg (26.0-34.0); MCHC 32.5 g/dL (31.0-37.0); MCV 93.4 fL (80.0-100.0); MEAN PLATELET VOLUME 9.6 fL (7.4-10.4); RBC 4.88 10x6/uL (4.20-6.10); RDW 13.5 % (11.5-14.5)
[2020-03-01 10:00] LABS: ANION GAP 9.5 mmol/L (8-16); CARBON DIOXIDE 28.4 mmol/L (21.0-32.0); CREATININE - SERUM 1.1 mg/dL (0.6-1.3); POTASSIUM - SERUM 3.9 mmol/L (3.5-5.1)
[~2020-03-04] VITALS: Ht 190.5 cm; Wt 104.8 kg
[2020-03-04 06:53] VITALS: BP 130/70; Ht 190.5 cm; Wt 104.8 kg
[2020-03-04] MEDS ORDERED: HYDROCODON-ACE1 EA10 PO (09:55)
--- NOTE | 2020-03-04 12:05 | NUR ---
1134 IV DC'D. CATHETER TIP INTACT. NO BLEEDING AT SITE. BANDAID APPLIED.
--- NOTE | 2020-03-14 07:08 | OP ---
PATIENT NAME: ALEIDA DRAKE MEDICAL RECORD: [id number] :53 LOCATION:[facility] ADMISSION DATE: SURGEON: ZORAIDA LAMBERT MD DATE OF OPERATION: 03/04/2020 PREOPERATIVE DIAGNOSES: 1. Recurrent rotator cuff tear of the left shoulder. 2. Recurrent impingement of the left shoulder. 3. Acromioclavicular arthropathy. POSTOPERATIVE DIAGNOSES: 1. Recurrent rotator cuff tear of the left shoulder. 2. Recurrent impingement of the left shoulder. 3. Acromioclavicular arthropathy. PROCEDURES: 1. Left shoulder arthroscopy with arthroscopic rotator cuff repair. 2. Left shoulder arthroscopic distal clavicle excision done through separate incision - 1 cm. 3. Left shoulder subacromial decompression with acromioplasty and bursectomy, arthroscopy. SURGEON: Zoraida Lambert MD WINDOWS SUPPORT ENGINEER: MEL Patton INTRAOPERATIVE COMPLICATIONS: None. SUMMARY OF PATHOLOGIC FINDINGS: The patient indeed was found to have a small rotator cuff tear anterior to the previously repaired region. He had what was thought to be an area of SLAP lesion. He did have some labral tearing that was gently debrided; however, it did not needed to be reattached as it had firm attachments of the peripheral rim, intrasubstance labral tearing was found. He did have recurrent thickening of his coracoacromial ligament as well as arthropathy of the AC joint. OPERATIVE SUMMARY IN DETAIL: After obtaining the appropriate preoperative orthopedic surgery consent as well as anesthetic consultation, evaluation and clearance, the patient was brought to the operating room and placed on operative table in supine position. After adequate general laryngeal mask was administered, the patient was placed in a right lateral decubitus position. All pressure points were well padded to include down leg peroneal pad as well as axillary roll. The patient was held firmly to the operating table using the vacuum pack suction system. Left upper extremity and shoulder were then prepped and draped in routine sterile fashion. The arm was held in the [employer] traction boom at 30 degrees of forward flexion, 30 degrees of abduction and 10 pounds of traction laterally. At this point, the appropriate timeout was taken and agreed upon by all given the appropriate patient indicators. Arthroscopy was established in the glenohumeral joint from the posterior portal. Anterior portal was established in the anterior safe interval. Diagnostic arthroscopy did reveal the above findings. The anterior portals was also placed under direct arthroscopic visualization, very small amount of labral debridement was performed. The rotator cuff tear was found. Transrotator cuff portal was created for debridement of the undersurface of the rotator cuff as well as debridement of the small area of the supraspinatus tendinous footprint OPERATIVE REPORT [id number] FELT,ALEIDA BARROW anteriorly. Attention was then turned to the subacromial space. While in the subacromial space, [employer] tissue ablation system was utilized to release the coracoacromial ligament and denude the undersurface of the residual acromion to the acromioclavicular joint. A 5.0 barrel bur was then used to perform acromioplasty at the level of acromioclavicular joint and then through a separate anterior arthroscopic portal under direct arthroscopic visualization, distal clavicle was excised for 1 cm. Having completed this, attention was returned to the small rotator cuff tear. Further decortication was carried out on the supraspinatus portion of the greater tuberosity and inverted style mattress FiberTape was placed and anchored laterally with the 5.5 SwiveLock from [employer]. Having completed this, arthroscopy portals were closed in routine interrupted fashion using 4-0 Prolene. Sterile dressings were applied. The patient was then awakened and taken to recovery in stable condition. All final needle and sponge counts were correct. TRANSINT:[id number] Voice Confirmation ID: [id number] DOCUMENT ID: [id number] FAUSTO HOLT, ZORAIDA JEROME at 0708 CC: [id number] DICTATION DATE: 03/13/20 1254 MEDICAL TECHNICIANS: 03/13/20 1543 [facility] 03/04/20 [place] [id number] [place] [id number]
== END 2020-03-04 11:49 | disposition home or self-care (01) ==
LOC: D.OPS 06:00 → D.PAN 13:15
PROVIDERS: Anesthesiology; ATTEND Orthopaedic Surgery
DX: M75.102 Unspecified rotator cuff tear or rupture of left shoulder, not specified as traumatic (principal); M75.42 Impingement syndrome of left shoulder; M12.812 Other specific arthropathies, not elsewhere classified, left shoulder; M25.512 Pain in left shoulder; E78.1 Pure hyperglyceridemia; R10.11 Right upper quadrant pain; I10 Essential (primary) hypertension; J45.909 Unspecified asthma, uncomplicated; E78.5 Hyperlipidemia, unspecified; S43.439A Superior glenoid labrum lesion of unspecified shoulder, initial encounter

== ENCOUNTER → 2020-03-08 08:20 | Outpatient (CLI) | payer MEDICARE, OTHER ==
[2020-03-04 06:53] VITALS: BMI 28.9
[2020-03-08 08:58] LABS: ALBUMIN 3.1 g/dL (3.4-5.0); BILIRUBIN - DIRECT 0.13 mg/dL (0.00-0.30); BILIRUBIN - INDIRECT 0.2 mg/dL (0.00-1.00); BILIRUBIN - TOTAL 0.33 mg/dL (0.2-1.3); PROTEIN - SERUM 6.7 g/dL (6.4-8.2)
== END | disposition home or self-care (01) ==
LOC: D.LAB 08:20 → D.US 09:00 → D.RAD 09:30
PROVIDERS: ATTEND Internal Medicine Gastroenterology
DX: R13.10 Dysphagia, unspecified (principal); K76.0 Fatty (change of) liver, not elsewhere classified